=== PATIENT | female | born 1980 | race Caucasian/White ===

== ENCOUNTER 2023-12-24 18:09 | Emergency (ER) | payer MEDICAID, OTHER ==
[~2023-12-24] VITALS: Ht 154.9 cm; Wt 77.1 kg
[~2023-12-24 18:09] MED LIST: DOCU100C83 PO; ERGO2000 PO; FERR-15 PO; [UNRECOGNIZED DRUG - CODE] PO
[2023-12-24 18:22] VITALS: BP 137/92; PULSE 94; RESP 17; TEMP 99.3; O2SAT 98
[2023-12-24 19:33] VITALS: O2SAT 99
[2023-12-24 19:35] LABS: BASOPHILS % (AUTO) 0.7 % (0.0-2.0); EOSINOPHILS % (AUTO) 0.3 % (0.0-4.0); HEMATOCRIT 34.1 % (36-48); HEMOGLOBIN 11.4 g/dL (12.0-16.0); LYMPHOCYTES # (AUTO) 0.8 K/uL (2.5-16.5); LYMPHOCYTES % (AUTO) 14.8 % (20.5-51.1); MEAN CORPUSCULAR HEMOGLOBIN 26 pg (27-31); MEAN CORPUSCULAR HGB CONC 33 g/dL (33-37); MEAN CORPUSCULAR VOLUME 78.5 fL (80-94); MONOCYTES # (AUTO) 0.5 K/uL (0.8-1.0); MONOCYTES % (AUTO) 9.7 % (1.7-9.3); NEUTROPHILS # (AUTO) 3.8 K/uL (1.8-7.7); NEUTROPHILS % (AUTO) 74.5 % (42.2-75.2); PLATELET COUNT (AUTO) 212 K/uL (140-450); RED BLOOD CELL COUNT(AUTO) 4.34 MIL/uL (4.20-5.40); RED CELL DISTRIBUTION WIDTH 14.8 % (11.6-13.7); WHITE BLOOD COUNT (AUTO) 5.1 K/uL (4.8-10.8)
[2023-12-24 19:49] LABS: ALBUMIN 3.5 g/dL (3.4-5.0); ANION GAP 12.3 (8-16); CALCIUM 8.4 mg/dL (8.5-10.1); CARBON DIOXIDE 29.2 mmol/L (21-32); CREATININE 0.7 mg/dL (0.6-1.3); POTASSIUM 3.5 mmol/L (3.5-5.1); TOTAL BILIRUBIN 0.3 mg/dL (0.0-1.0); TOTAL PROTEIN, SERUM 7.2 g/dL (6.4-8.2)
[2023-12-24 20:04] LABS: APPEARANCE,URINE CLEAR (CLEAR); BILIRUBIN,URINE NEGATIVE (NEGATIVE); BLOOD, URINE NEGATIVE (NEGATIVE); COLOR,URINE YELLOW (YELLOW); LEUKOCYTE ESTERASE ,URINE TRACE (NEGATIVE); NITRITE, URINE POSITIVE (NEGATIVE); PROTEIN,URINE NEGATIVE (NEGATIVE); UGLUCOSE NEGATIVE (NEGATIVE)
[2023-12-24 20:08] LABS: RBC,URINE 0-5 /HPF (0-5)
[2023-12-24 20:09] LABS: BACTERIA,URINE FEW /HPF (None Seen); SQUAMOUS EPITHELIAL CELL,UR 0-3 (FEW) /LPF (0-3 (FEW)); WBC,URINE 0-5 /HPF (0-5)
[2023-12-24] MEDS: KETOROLAC 30 MG/ML VIAL IM ONE (20:17)
[2023-12-24] MEDS ORDERED: NITR100C7 PO (21:44)
[2023-12-24] MEDS ORDERED: FAMO-90 PO (21:44)
[2023-12-24 21:58] VITALS: BP 121/85; PULSE 78; RESP 18; TEMP 98.9; O2SAT 99
== END 2023-12-24 21:58 | disposition home or self-care (01) ==
LOC: MED 18:09
DX: N39.0 Urinary tract infection, site not specified (principal); K29.70 Gastritis, unspecified, without bleeding; Z79.899 Other long term (current) drug therapy
CPT/HCPCS: 36415; 76705; 80053; 81001; 81025; 83690; 85025; 96372; 99285; J1885; Q0092